=== PATIENT | female | born 1990 ===

== ENCOUNTER 2017-02-16 06:13 | Day surgery (SDC) | payer BC ==
[~2017-02-16 06:13] MED LIST: Acetaminophen TAB* 325 MG PO ONE; Buffered Lidocaine 0.9% SYRIN* 5 ML/SYR SYRINGE INTRADERM ONE; Famotidine IV* 10 MG/ML 2 ML (20 mg) IV ONE; Ondansetron INJ* 2 MG/ML VIAL IV ONE
[2017-02-16] MEDS ORDERED: Ondansetron INJ* 2 MG/ML VIAL ONE (06:21)
[2017-02-16] MEDS ORDERED: Famotidine IV* 10 MG/ML 2 ML (20 mg) ONE (06:22)
[2017-02-16] MEDS ORDERED: Acetaminophen TAB* 325 MG ONE (06:22)
[2017-02-16] MEDS ORDERED: ceFOXitin 2 GM IVPREMIX* 2 GM/50 ML BAG ONE (06:22)
[2017-02-16] MEDS ORDERED: Buffered Lidocaine 0.9% SYRIN* 5 ML/SYR SYRINGE ONE (06:23)
[2017-02-16] MEDS ORDERED: Propofol* 10 MG/ML 20 ML BTL IV PUSH ONE (07:12)
[2017-02-16] MEDS ORDERED: Lidocaine 2% PF * 5 ML VIAL ONE (07:12)
[2017-02-16] MEDS ORDERED: Midazolam* 1 MG/ML 2 ML VIAL (2 MG) ONE (07:12)
[2017-02-16] MEDS ORDERED: fentaNYL* 50 MCG/ML 5 ML VIAL (250 MCG VIAL) ONE (07:12)
[2017-02-16] MEDS ORDERED: Glycopyrrolate IV* 0.2 MG/ML 1 ML VIAL ONE (07:13)
[2017-02-16] MEDS ORDERED: Neostigmine Methylsulfate* 2 MG/2 ML SYRINGE ONE (07:13)
[2017-02-16] MEDS ORDERED: Rocuronium* 10 MG/ML VIAL ONE (07:13)
[2017-02-16] MEDS ORDERED: Bupivacaine 0.5% SDV PF* 30 ML VIAL ONE (07:19)
[2017-02-16] MEDS ORDERED: Bupivacaine 0.25% SDV* 30 ML ONE (07:36)
[2017-02-16] MEDS ORDERED: DiMENhydriNATE IV* 50 MG/ML VIAL IV PUSH PRN (08:10)
[2017-02-16] MEDS ORDERED: HYDROmorphone* 1 MG/ML 1 ML SYR IV PRN (08:10)
[2017-02-16] MEDS ORDERED: fentaNYL* 50 MCG/ML 2 ML VIAL (100 MCG VIAL) IV PRN (08:10)
[2017-02-16] MEDS ORDERED: fentaNYL* 50 MCG/ML 2 ML VIAL (100 MCG VIAL) ONE (09:30)
[2017-02-16 10:16] VITALS: BP 129/89
--- NOTE | 2017-02-16 22:48 | OP ---
DATE OF OPERATION: 02/16/17 [facility] DATE OF : [birth year] SURGEON: Melvin Jain MD METAL FABRICATOR APPRENTICE: None. ANESTHESIOLOGIST: Aracely Barahona MD ANESTHESIA: General anesthetic with endotracheal intubation. PRE-OP DIAGNOSES: Multiparity, desires permanent surgical sterilization, and presence of an intrauterine device. POST-OP DIAGNOSES: Multiparity, desires permanent surgical sterilization, and presence of an intrauterine device. OPERATIVE PROCEDURE: Bilateral laparoscopic tubal ligation with Filshie clips and IUD removal. ESTIMATED BLOOD LOSS: None. SPECIMENS: There were no specimens sent to Pathology. FLUIDS: She received 750 cc of IV crystalloid fluid. URINE OUTPUT: Clear. FINDINGS: Laparoscopically revealed normal tubes, normal ovaries, normal uterus , bowel, and bladder. There were no complications. DESCRIPTION OF PROCEDURE: The patient was taken to the operating room where she was identified. She was placed on the operating table, where a general anesthetic with endotracheal intubation was obtained without difficulty. She was then placed in the dorsal lithotomy position, prepped and draped in normal sterile fashion. Attention was then brought on to the patient's perineum, where the bladder was catheterized with a Haynes catheter and cleared of urine. A side view speculum was inserted into the patient's vagina. The cervix was visualized, grasped with a single tooth tenaculum. The IUD string was noted. At this point, the IUD was removed without any complications and it was noted to be intact, a Mirena IUD. After the IUD was removed, the uterus was then sounded. It was sounded to 8 cm in an ante-verted position, and through the cervix, a ClearView uterine manipulator was introduced. The balloon of the manipulator was inflated with 4 cc of sterile water. A single-tooth tenaculum and the speculum were then removed from the patient's vagina. Attention was then brought on to the patient's abdomen where a 1- cm infraumbilical skin incision was made with a knife and carried through to layer of fascia. The fascia was then grasped with Michell clamps, brought up to the incision, incised with a knife, and entry into the patient's abdomen was confirmed using a Estefania clamp. The Michell clamps on the fascia were then replaced with 0 Polysorb suture. Through this incision, a blunt 10-mm trocar was introduced. The balloon and the trocar were insufflated with 20 cc of air and the gas was turned on and the patient's abdomen was insufflated with CO2 gas. A view with the laparoscope revealed findings laparoscopic as above. At this point, the patient was then placed in the Trendelenburg position and a second trocar was introduced under direct visualization 4 cm above the symphysis pubis. Through the second trocar, a Filshie clip applicator was introduced and the Filshie clips were applied to the fallopian tubes bilaterally with good blanching of the application site and the Filshie clips completely covered the fallopian tubes at the site of attachment circumferentially. At this point, all the instruments were removed from the patient's abdomen. Sponge, lap, and needle counts were correct x1. The fascial incision at the umbilicus was closed with 0 Polysorb suture and the skin incisions were closed at the umbilicus and suprapubically with 4-0 Monocryl subcuticular stitch. The uterine manipulator was removed from the patient's cervix and uterus. The Haynes catheter was also removed. Sponge, lap, and needle counts were correct x2. The patient was then transferred to recovery room area in stable condition. [id number]/[facility] #: [id number] MTDD
== END 2017-02-16 10:19 | disposition home or self-care (01) ==
LOC: OR 06:13
PROVIDERS: ATTEND Obstetrics & Gynecology
DX: Z30.2 Encounter for sterilization (principal); Z30.432 Encounter for removal of intrauterine contraceptive device
CPT/HCPCS: A9270-GY; J0694; J2250; J2405; J2704; J3010

== ENCOUNTER 2017-05-17 10:38 | Emergency (ER) | payer BC ==
--- NOTE | 2017-05-17 12:23 | UC ---
Respiratory Complaint HPI - HPI Summary HPI Summary: 27F presents with cough for two weeks. She has been coughing up green mucus. She admits to occasionally SOB. She admits to sinus congestion. She admits to post nasal drip. She denies any fever, abdominal pain, or chest pain. She denies any sore throat. She does not smoke. She does not have a history of asthma. She states that she does not smoke. - History of Current Complaint Chief Complaint: UCRespiratory Stated Complaint: URI Time Seen by Provider: 05/17/17 12:14 Hx Last Menstrual Period: 03/31/17 - Allergies/Home Medications Allergies/Adverse Reactions: Allergies Allergy/AdvReac Type Severity Reaction Status Date / Time No Known Allergies Allergy Verified 05/17/17 11:24 Home Medications: Home Medications Phenylephrine-Chlorpheniramine [Rosaline-[place] Plus Cold & 5-2-10-325 mg] 1 cap PO DAILY 05/17/17 [History Confirmed 05/17/17] PMH/Surg Hx/FS Hx/Imm Hx Endocrine History: Other Other Endocrine History: no DM Respiratory History: Other Other Respiratory History: no asthma - Surgical History Surgical History: Yes Surgery Procedure, Year, and Place: D&C 6 years ago. tubal ligation 2017 - Family History Known Family History: Negative: Respiratory Disease - Social History Alcohol Use: Occasionally Substance Use Type: None Smoking Status (MU): Never Smoked Tobacco Have You Smoked in the Last Year: No - Immunization History Most Recent Influenza Vaccination: 2013 Most Recent Tetanus Shot: 2014 Most Recent Pneumonia Vaccination: none Review of Systems Constitutional: Negative ENT: Nasal Discharge Respiratory: Cough All Other Systems Reviewed And Are Negative: Yes Physical Exam Triage Information Reviewed: Yes Appearance: Well-Appearing Vital Signs: Initial Vital Signs Temp 97.8 F 05/17/17 11:19 Pulse 52 05/17/17 11:19 Resp 16 05/17/17 11:19 BP 107/63 05/17/17 11:19 Pulse Ox 100 05/17/17 11:19 Vital Signs Reviewed: Yes Eyes: Positive: Conjunctiva Clear ENT: Positive: Normal ENT inspection, Pharynx normal, Nasal congestion, TMs normal Neck: Positive: Supple, Nontender, No Lymphadenopathy Respiratory: Positive: Lungs clear, Normal breath sounds Cardiovascular: Positive: RRR Abdomen Description: Positive: Nontender, Soft Bowel Sounds: Positive: Present Musculoskeletal Exam: Normal Neurological Exam: Normal Psychological Exam: Normal Skin Exam: Normal UC Diagnostic Evaluation - Laboratory O2 Sat by Pulse Oximetry: 100 - Radiology Xray Interpretation: No Acute Changes Radiology Interpretation Completed By: Radiologist Respiratory Course/Dx - Course Course Of Treatment: 27F presents with cough for two weeks. She has been coughing up green mucus. She admits to occasionally SOB. She admits to sinus congestion. She admits to post nasal drip. She denies any fever, abdominal pain, or chest pain. She denies any sore throat. She does not smoke. She does not have a history of asthma. She states that she does not smoke. on exam lungs CTA. chest xray normal. will treat with prednisone, cough medication, and inhaler. patient understand and agrees with plan. - Differential Dx/Diagnosis Differential Diagnosis/HQI/PQRI: Bronchitis, Influenza, Lower Resp Infection Provider Diagnoses: bronchitis Discharge - Discharge Plan Condition: Good Disposition: HOME Prescriptions: Albuterol HFA INHALER* [Ventolin HFA Inhaler*] 1 puff INH Q6H PRN #1 mdi PRN Reason: Cough Guaifenesin-Codeine [Guaiatussin AC] 5 ml PO Q6HR PRN #100 ml MDD 20ml PRN Reason: Cough predniSONE TAB* [Deltasone TAB*] 40 mg PO DAILY #5 tab Patient Education Materials: Acute Bronchitis (ED) Referrals: [facility] [Outside] Additional Instructions: Take cough medication 5ml (1 teaspoon) every 6 hours as needed cough Use inhaler up to two puffs every 4-6 hours for cough Take steroid once a day starting tomorrow Use saline in the nose for nasal congestion, can also get Sudafed at pharmacy counter for nasal congestion Use humidifier or place warm bowls of water around the room for cough Take Tylenol or ibuprofen for pain every 6 hours Return to ED if develop any new or worsening symptoms
--- NOTE | 2017-05-17 12:47 | RAD ---
Indication: Cough. 2 views of the chest including dual energy PA views demonstrate no mediastinal shift. Heart is of normal size and configuration. Lung bradley are clear. IMPRESSION: No active cardiopulmonary disease is noted.
[2017-05-17 12:49] VITALS: BP 95/65
== END 2017-05-17 12:56 | disposition home or self-care (01) ==
LOC: UCEAST 10:38
DX: J40 Bronchitis, not specified as acute or chronic (principal)
CPT/HCPCS: 71020; 99212; G0463